=== PATIENT | male | born 1945 | race Caucasian/White ===

== ENCOUNTER → 2024-05-14 | Outpatient (CLI) | payer MEDICARE, SELFPAY ==
[2024-05-14 08:48] LABS: Alanine Aminotransferase 23 U/L (10-49); Albumin, Serum 4.5 gm/dL (3.4-4.8); Albumin/Globulin Ratio 2.3 (1.2-2.2); Alkaline Phosphatase 39 U/L (46-116); Anion Gap 5 (7-16); Aspartate Amino Transferase 11 U/L (0-34); BUN/Creatinine Ratio 23 Ratio (12-20); Bilirubin,Total 0.8 mg/dL (0.3-1.2); Blood Urea Nitrogen 34 mg/dL (9-23); Calcium 10.3 mg/dL (8.3-10.6); Calcium (Corrected) 10.3 mg/dL (8.5-10.1); Carbon Dioxide 26.4 mMol/L (20.0-31.0); Cardiac Risk Estimate 3.9 RATIO (4.0-6.7); Chloride 105 mMol/L (98-107); Cholesterol 143 mg/dL (132-200); Creatinine (Component) 1.5 mg/dL (0.6-1.3); Glucose 119 mg/dL (74-106); HDL Cholesterol 37 mg/dL (40-60); LDL Cholesterol,Calculated 89 mg/dL (0-130); Osmolality,Calculated 280 (275-295); Potassium 4.2 mMol/L (3.4-5.1); Sodium 136 mMol/L (136-145); Total Protein 6.5 gm/dL (5.7-8.2); Triglycerides 86 mg/dL (30-150); Uric Acid 3.7 mg/dL (3.7-9.2); eGFR 47 See Note
== END | disposition home or self-care (01) ==
LOC: COPL 07:34
PROVIDERS: PCP Internal Medicine; Referring Provider Internal Medicine; Visit Provider Internal Medicine
DX: I12.9 Hypertensive chronic kidney disease with stage 1 through stage 4 chronic kidney disease, or unspecified chronic kidney disease (principal); N18.30 Chronic kidney disease, stage 3 unspecified; E78.5 Hyperlipidemia, unspecified
CPT/HCPCS: 36415; 80053; 80061; 84550

== ENCOUNTER → 2024-05-25 | Outpatient (CLI) | payer MEDICARE, SELFPAY ==
--- NOTE | 2024-05-25 14:45 | XR_ITS ---
EXAMINATION: PET/CT FUSION SKULL TO THIGH EXAM DATE AND TIME: May 25, 2024 at 1544 hours INDICATIONS: Diagnosis of Raphael cell carcinoma, restaging post treatment CTDI:vol (mGy) 16.69 DLP: (mGycm) 1686.56 PROCEDURE: 16.8 mCi FDG was administered intravenously To allow for distribution and uptake of radiotracer, the patient was allowed to rest quietly in a shielded room. Imaging was performed on an integrated 16-slice PET/CT scanner, with scanning from the skull base to the mid thigh. Serum blood glucose at the time of the injection was measured 102 mg/dL. CT scanning was performed without oral or intravenous contrast material. FINDINGS: Head and Neck: There is no mick hypermetabolism in the neck. The visualized portions of the brain are normal in appearance on CT. Chest: There is no mick hypermetabolism in the chest. There are no pulmonary nodules. Abdomen and Pelvis: There is no mick hypermetabolism in retroperitoneal or pelvic chains. The spleen is normal in size and FDG avidity. Musculoskeletal: Marrow uptake is within normal range. IMPRESSION: No hypermetabolic interval metastatic disease noted An addendum will be made to this report when the 3-D whole-body image is available for interpretation
== END | disposition home or self-care (01) ==
LOC: CDIM 14:21
PROVIDERS: PCP Internal Medicine; Referring Provider Dermatology; Visit Provider Dermatology
DX: C7A.8 Other malignant neuroendocrine tumors (principal)
CPT/HCPCS: 78816; A9552

== ENCOUNTER → 2024-09-10 | Outpatient (CLI) | payer MEDICARE, SELFPAY ==
[2024-09-10 09:06] LABS: Collection Type, Urine Clean Catch
[2024-09-10 09:32] LABS: Basophils # (Auto) 0.1 Thou/mm3 (0.0-0.2); Basophils % (Auto) 1 % (0-2.5); Eosinophils # (Auto) 0.3 Thou/mm3 (0.0-0.5); Eosinophils % (Auto) 5 % (0-10); Hematocrit 40.2 % (41.0-53.0); Hemoglobin 13.5 g/dL (13.5-16.0); Immature Granulocytes % (Auto) 1 % (0-0); Immature Granulocytes Auto 0.06 Thou/mm3 (0.00-0.00); Lymphocytes # (Auto) 1.3 Thou/mm3 (1.0-4.8); Lymphocytes % (Auto) 25 % (10-50); Mean Corpuscular HGB Conc 33.6 g/dl (31.0-37.0); Mean Corpuscular Hemoglobin 31.5 pg (25.0-35.0); Mean Corpuscular Volume 94 fL (80-100); Monocytes # (Auto) 0.6 Thou/mm3 (0.0-0.8); Monocytes % (Auto) 12 % (0-12); Neutrophils # (Auto) 2.9 Thou/mm3 (1.8-7.7); Neutrophils % (Auto) 56 % (37-80); Nucleated Red Blood Cell % 0 /100 WBC (0); Platelet Count 221 Thou/mm3 (140-440); RDW Standard Deviation 46.5 fL (35.1-43.9); Red Blood Count 4.28 Miln/mm3 (4.50-5.90); White Blood Count 5.2 Thou/mm3 (3.8-10.6)
[2024-09-10 09:36] LABS: Bilirubin,Urine Negative (Negative); Blood,Urine Negative (Negative); Clarity,Urine Clear (Clear/Hazy); Color,Urine Lt-Yellow (Lt Yel-Yel); Glucose, Urine Negative (Negative); Ketones,Urine Negative (Negative); Leukocyte Esterase,Urine Negative (Negative); Nitrite,Urine Negative (Negative); Protein,Urine Negative (Neg - Trace); RBC,Urine 2 /hpf (0-3); Specific Gravity,Urine 1.017 (1.001-1.035); Squamous Epithelial Cell,Urine < 1 /hpf (0-5); Urobilinogen,Urine Negative mg/dL (0.0-1.0); WBC,Urine < 1 /hpf (0-5)
[2024-09-10 09:52] LABS: Alanine Aminotransferase 16 U/L (10-49); Anion Gap 7 (7-16); Aspartate Amino Transferase 26 U/L (0-34); BUN/Creatinine Ratio 27 Ratio (12-20); Bilirubin,Total 0.5 mg/dL (0.3-1.2); Blood Urea Nitrogen 35 mg/dL (9-23); Calcium 9.4 mg/dL (8.3-10.6); Calcium (Corrected) 9.4 mg/dL (8.5-10.1); Carbon Dioxide 27.6 mMol/L (20.0-31.0); Chloride 104 mMol/L (98-107); Cholesterol 150 mg/dL (132-200); Creatinine (Component) 1.3 mg/dL (0.6-1.3); Glucose 114 mg/dL (74-106); HDL Cholesterol 32 mg/dL (40-60); Osmolality,Calculated 286 (275-295); Potassium 4.8 mMol/L (3.4-5.1); Sodium 139 mMol/L (136-145); Triglycerides 123 mg/dL (30-150); Uric Acid 2.7 mg/dL (3.7-9.2); eGFR 56 See Note
[2024-09-10 09:53] LABS: Alkaline Phosphatase 34 U/L (46-116); Cardiac Risk Estimate 4.7 RATIO (4.0-6.7); LDL Cholesterol,Calculated 93 mg/dL (0-130)
== END | disposition home or self-care (01) ==
PROVIDERS: PCP Internal Medicine; Referring Provider Internal Medicine; Visit Provider Internal Medicine
DX: I12.9 Hypertensive chronic kidney disease with stage 1 through stage 4 chronic kidney disease, or unspecified chronic kidney disease (principal); N18.30 Chronic kidney disease, stage 3 unspecified; E78.5 Hyperlipidemia, unspecified
CPT/HCPCS: 36415; 80053; 80061; 81001; 84550; 85025

== ENCOUNTER 2024-10-13 09:24 | Outpatient (RCR) | payer MEDICARE, SELFPAY ==
--- NOTE | 2024-10-13 10:00 | CTCFLWUP_ITS ---
[facility] [address] [place], [place] [address] FOLLOW-UP NOTE Date: 10/13/2024 MR#: [id number] Name: MURRAY GONZALEZ : 1945 Dx: C76.0 Malignant neoplasm of head, face and neck Identification. Patient with [place] cell right cheek postop radiation therapy completed 02/07/2023 5000 cGy via IMRT completed 02/07/2023 Posttreatment PET 05/17/2023 showed postsurgical changes with no signs of recurrence or met disease. Most recent PET 05/25/2024 no sign of recurrence or met disease. Has been going to [place] regularly and may have a follow-up later this summer. Patient has been doing fine except some pain in his left lower back of chronic standing since injury sustained as a youth. Exam she has oral cavity neck unremarkable. Lungs clear. No tenderness in back or abdomen region. A. History of Hingham cell CA right cheek P. I will see him again in 4 months time. Electronically signed by: Lars Liriano M.D. 10/13/2024 9:58 AM
== END 2024-10-27 23:59 | disposition home or self-care (01) ==
LOC: SCTC 09:24
PROVIDERS: PCP Internal Medicine; Referring Provider Internal Medicine; Visit Provider Radiology Therapeutic Radiology
DX: Z08 Encounter for follow-up examination after completed treatment for malignant neoplasm (principal); Z85.821 Personal history of Merkel cell carcinoma; Z92.3 Personal history of irradiation
CPT/HCPCS: 99213; G0463

== ENCOUNTER → 2024-12-28 | Outpatient (CLI) | payer MEDICARE, SELFPAY ==
[2024-12-28 09:15] LABS: Parathyroid Hormone Intact 21.6 pg/ml (18.5-88.0)
[2024-12-28 09:23] LABS: Vitamin D 25 Hydroxy Total 61.8 ng/mL (7.3-40.2)
[2024-12-28 09:24] LABS: Alanine Aminotransferase 30 U/L (10-49); Albumin, Serum 4.2 gm/dL (3.4-4.8); Albumin/Globulin Ratio 2.0 (1.2-2.2); Alkaline Phosphatase 29 U/L (46-116); Anion Gap 6 (7-16); Aspartate Amino Transferase 24 U/L (0-34); BUN/Creatinine Ratio 17 Ratio (12-20); Bilirubin,Total 0.8 mg/dL (0.3-1.2); Blood Urea Nitrogen 25 mg/dL (9-23); Calcium 9.6 mg/dL (8.3-10.6); Calcium (Corrected) 9.6 mg/dL (8.5-10.1); Carbon Dioxide 26.7 mMol/L (20.0-31.0); Cardiac Risk Estimate 4.2 RATIO (4.0-6.7); Chloride 107 mMol/L (98-107); Cholesterol 152 mg/dL (132-200); Creatinine (Component) 1.5 mg/dL (0.6-1.3); Globulin 2.1 gm/dL (2.3-3.5); Glucose 133 mg/dL (74-106); HDL Cholesterol 36 mg/dL (40-60); LDL Cholesterol,Calculated 96 mg/dL (0-130); Osmolality,Calculated 285 (275-295); Potassium 4.4 mMol/L (3.4-5.1); Sodium 140 mMol/L (136-145); Total Protein 6.3 gm/dL (5.7-8.2); Triglycerides 101 mg/dL (30-150); eGFR 47 See Note
== END | disposition home or self-care (01) ==
PROVIDERS: PCP Internal Medicine; Referring Provider Internal Medicine; Visit Provider Internal Medicine
DX: I10 Essential (primary) hypertension (principal); E78.5 Hyperlipidemia, unspecified; E55.9 Vitamin D deficiency, unspecified
CPT/HCPCS: 36415; 80053; 80061; 82306; 83970

== ENCOUNTER 2025-02-09 09:19 | Outpatient (RCR) | payer MEDICARE, SELFPAY ==
--- NOTE | 2025-02-09 10:08 | CTCFLWUP_ITS ---
[facility] [address] [place], [place] [address] FOLLOW-UP NOTE Date: 02/09/2025 MR#: [id number] Name: MURRAY GONZALEZ : 1945 Dx: C76.0 Malignant neoplasm of head, face and neck Identification. [place] cell right cheek head Surgery at [place] and postop radiation therapy using IMRT 5000 cGy completed 02/07/2023. PET scan 05/17/2023 showed postsurgical changes changes with no sign of any recurrence. Has been followed at [place]., But due to the long distance involved states that he is getting [facility] blood draw every few months. As I examined him today essentially unremarkable with no sign of recurrence in the neck or oral cavity. Lungs are clear. I asked him return in 4 months as he has not been examining the oral cavity by anybody else. Will also order PET scan before next visit. Electronically signed by: Lars Liriano M.D. 02/09/2025 10:06 AM
== END 2025-02-27 23:59 | disposition home or self-care (01) ==
LOC: SCTC 09:19
PROVIDERS: PCP Internal Medicine; Referring Provider Internal Medicine; Visit Provider Radiology Therapeutic Radiology
DX: Z08 Encounter for follow-up examination after completed treatment for malignant neoplasm (principal); Z85.821 Personal history of Merkel cell carcinoma; Z92.3 Personal history of irradiation
CPT/HCPCS: 99213; G0463

== ENCOUNTER → 2025-04-26 | Outpatient (CLI) | payer MEDICARE, SELFPAY ==
--- NOTE | 2025-04-26 09:30 | XR_ITS ---
EXAMINATION: PET/CT FUSION SKULL TO THIGH EXAM DATE AND TIME: April 26, 2025, 10 0 3:00 a.m., comparison May 25, 2024, November 06, 2023 INDICATIONS: Diagnosis head and neck cancer, restaging post treatment CTDI:vol (mGy) 7.07 DLP: (mGycm) 733.47 PROCEDURE: 16.1 mCi FDG was administered intravenously To allow for distribution and uptake of radiotracer, the patient was allowed to rest quietly in a shielded room. Imaging was performed on an integrated 16-slice PET/CT scanner, with scanning from the skull base to the mid thigh. Serum blood glucose at the time of the injection was measured 137 mg/dL. CT scanning was performed without oral or intravenous contrast material. FINDINGS: Head and Neck: There is no mick hypermetabolism in the neck. The visualized portions of the brain are normal in appearance on CT. Chest: There is no mick hypermetabolism in the chest. There are no pulmonary nodules. Abdomen and Pelvis: There is no mick hypermetabolism in retroperitoneal or pelvic chains. The spleen is normal in size and FDG avidity. Musculoskeletal: Marrow uptake is within normal range. IMPRESSION: No interval recurrent tumor
== END | disposition home or self-care (01) ==
LOC: CDIM 09:09
PROVIDERS: PCP Internal Medicine; Referring Provider Radiology Therapeutic Radiology; Visit Provider Radiology Therapeutic Radiology
DX: C76.0 Malignant neoplasm of head, face and neck (principal)
CPT/HCPCS: 78815; A9552

== ENCOUNTER 2025-06-08 10:47 | Outpatient (RCR) | payer MEDICARE, SELFPAY ==
--- NOTE | 2025-06-08 11:30 | CTCFLWUP_ITS ---
[facility] [address] [place], [place] [address] FOLLOW-UP NOTE Date: 06/08/2025 MR#: [id number] Name: MURRAY GONZALEZ : 1945 Dx: C76.0 Malignant neoplasm of head, face and neck Identification. Raphael cell right cheek had surgery at [place] and postoperation therapy using IMRT 5000 cGy completed 02/07/2023. No sign of recurrence clinically or on most recent PET scan 04/26/2025. Being followed at [place] who will see him in 3 months. [facility]ater[facility] test reportedly had been unremarkable thus far as well. As I see him today there is no sign of any recurrence in the head and neck sites lungs are clear. Will see him back again in 6 months time. Electronically signed by: Lars Liriano M.D. 06/08/2025 11:28 AM
== END 2025-06-29 23:59 | disposition home or self-care (01) ==
LOC: SCTC 10:47
PROVIDERS: PCP Internal Medicine; Referring Provider Internal Medicine; Visit Provider Radiology Therapeutic Radiology
DX: Z08 Encounter for follow-up examination after completed treatment for malignant neoplasm (principal); Z85.821 Personal history of Merkel cell carcinoma; Z92.3 Personal history of irradiation
CPT/HCPCS: 99212; G0463